=== PATIENT | male | born 1980 | race Caucasian/White ===

== ENCOUNTER 2020-06-17 09:04 | Outpatient (REF) | payer SELFPAY ==
[2020-06-17 14:24] LABS: Blood Donor Cholesterol 174
== END 2020-06-17 09:05 | disposition home or self-care (01) ==
LOC: HO.LNC 09:04
PROVIDERS: Visit Provider Pathology Anatomic Pathology & Clinical Pathology
DX: Z13.220 Encounter for screening for lipoid disorders (principal)
CPT/HCPCS: 82465

== ENCOUNTER 2020-09-10 07:49 | Outpatient (REF) | payer OTHER, SELFPAY ==
[2020-09-10 08:06] LABS: COVID-19 Test Negative (Negative)
== END 2020-09-10 07:50 | disposition home or self-care (01) ==
LOC: HO.EMPCOV 07:49
PROVIDERS: Visit Provider Internal Medicine
DX: Z20.822 Contact with and (suspected) exposure to COVID-19 (principal)
CPT/HCPCS: 36415; 87635; C9803

== ENCOUNTER 2020-12-17 15:19 | Outpatient (REF) | payer OTHER, SELFPAY ==
[2020-12-17 15:41] LABS: COVID-19 Test Negative (Negative)
== END 2020-12-17 15:20 | disposition home or self-care (01) ==
LOC: HO.EMPCOV 15:19
PROVIDERS: Visit Provider Internal Medicine
DX: Z20.822 Contact with and (suspected) exposure to COVID-19 (principal)
CPT/HCPCS: 36415; 87635; C9803

== ENCOUNTER 2021-04-26 08:35 | Outpatient (REF) | payer OTHER, SELFPAY ==
[2021-04-26 08:58] LABS: COVID-19 Test Negative (Negative)
== END 2021-04-26 08:36 | disposition home or self-care (01) ==
LOC: HO.LAB 08:35
PROVIDERS: Visit Provider Internal Medicine
DX: Z20.822 Contact with and (suspected) exposure to COVID-19 (principal)
CPT/HCPCS: 36415; 87635; C9803